=== PATIENT | female | born 1990 | race Caucasian/White ===

== ENCOUNTER 2019-11-26 16:38 | Emergency (ER) | payer OTHER ==
[2019-11-26 16:51] LABS: Glucose,Whole Blood 89 mg/dL (75-99)
[2019-11-26 16:54] VITALS: BP 125/83; PULSE 87; RESP 16; TEMP 97.7
[2019-11-26 17:04] LABS: Basophils % (A) 0 %; Eosinophils # (A) 0.4 k/uL (0-0.7); Eosinophils % (A) 5 %; HCT 41.1 % (34.0-46.0); HGB 14.3 gm/dL (11.4-16.0); Lymphocytes # (A) 2.8 k/uL (1.0-4.8); Lymphocytes % (A) 35 %; MCH 31.7 pg (25.0-35.0); MCHC 34.7 g/dL (31.0-37.0); MCV 91.3 fL (80.0-100.0); Mean Platelet Volume 7.3; Monocytes # (A) 0.3 k/uL (0-1.0); Monocytes % (A) 4 %; Neutrophils # (A) 4.3 k/uL (1.3-7.7); Neutrophils % (A) 53 %; Platelet Count 276 k/uL (150-450); RDW 12.9 % (11.5-15.5); WBC 8.1 k/uL (3.8-10.6)
[2019-11-26 17:14] LABS: ALT 35 U/L (4-34); AST 43 U/L (14-36); African American GFR (CKD) >90 (>60 ml/min/1.73 sqM); Albumin 5.4 g/dL (3.5-5.0); Alkaline Phosphatase 89 U/L (38-126); Anion Gap 12 mmol/L; Blood Urea Nitrogen 9 mg/dL (7-17); Calcium 9.6 mg/dL (8.4-10.2); Carbon Dioxide 21 mmol/L (22-30); Chloride 111 mmol/L (98-107); Glucose 90 mg/dL (74-99); Non-African American GFR(CKD) >90 (>60 ml/min/1.73 sqM); Potassium 4.2 mmol/L (3.5-5.1); Sodium 144 mmol/L (137-145); Total Bilirubin 0.3 mg/dL (0.2-1.3); Total Protein 8.4 g/dL (6.3-8.2)
[2019-11-26 17:16] LABS: Alcohol 288 mg/dL
--- NOTE | 2019-11-26 17:25 | CT ---
EXAMINATION TYPE: CT brain maria d shipman DATE OF EXAM: 11/26/2019 COMPARISON: none HISTORY: Fall with head injury. CT DLP: 1260.[address] Brain: Unenhanced CT of the brain was performed. The ventricles, basal cisterns and sulci overlying the cerebral convexities demonstrate a normal appe arance. There is no evidence for intracranial hemorrhage or sulcal effacement. No mass effects are seen. If symptoms persist consider MRI. Osseous calvarium is intact. Chronic sinusitis. IMPRESSION: No acute intracranial process CT Cervical Spine: Unenhanced CT of the cervical spine was performed with bone and soft tissue window settings submitted . Coronal and sagittal reconstruction is obtained. There is normal alignment and prevertebral soft tissues. I do not see evidence for fracture or sublu xation. No significant degenerative changes are present. The lung apices are clear. IMPRESSION: No evidence for acute fracture or subluxation of the cervical spine.
--- NOTE | 2019-11-26 17:26 | XR ---
EXAMINATION TYPE: XR chest 2V DATE OF EXAM: 11/26/2019 COMPARISON: NONE HISTORY: Chest pain TECHNIQUE: Frontal and lateral views of the chest are obtained. FINDINGS: There is no focal air space opacity. No evidence for pneumothorax. No pleural effusion. The cardiac silhouette size is within normal limits. The osseous structures are grossly intact. IMPRESSION: 1. No acute cardiopulmonary process.
--- NOTE | 2019-11-26 17:35 | ED ---
General Adult HPI - General Source: patient, EMS Mode of arrival: EMS Limitations: altered mental status <Loretta Carter - Last Filed: 11/26/19 18:38> <Ivonne Swift - Last Filed: 11/28/19 00:08> - General Chief complaint: Syncope Stated complaint: Syncope Time Seen by Provider: 11/26/19 16:39 - History of Present Illness Initial comments: 29-year-old female history of ABUSE presents today intoxicated for syncopal episode. Patient is brought in by EMS for evaluation after syncopal episode at [place]. She was sent to the emergency department for evaluation. She states that she had an appointment 11:45 AM. patient states she became irritated with a woman inside and went to stand outside she states it took over 4 hours for her to get into appointment she states she began to feel lightheaded outside she states is very hot out and then passed out she states she does believe she hit her head but denies any head complaints his headache neck pain or scalp abrasions/hematomas. Patient denies neck pain, denies noting any chest pain shortness of breath or any symptoms prior to onset of syncopal episodes denies history of syncopal episodes. When EMS arrived her glucose was 55. Patient denies history of DM. States she did have a sandwhich earlier in the morning. Patient on arrival is AAOX4. she is answering questions appropriately. Patient does not appears in distress. Patient states she will be evaluated but doesnt really want to (Loretta Carter) - Related Data Allergies Allergy/AdvReac Type Severity Reaction Status Date / Time No Known Allergies Allergy Verified 11/26/19 16:52 Review of Systems ROS Other: All systems not noted in ROS Statement are negative. <Loretta Carter - Last Filed: 11/26/19 18:38> ROS Other: All systems not noted in ROS Statement are negative. <Ivonne Swift - Last Filed: 11/28/19 00:08> ROS Statement: Those systems with pertinent positive or pertinent negative responses have been documented in the HPI. Past Medical History Past Medical History: No Reported History History of Any Multi-Drug Resistant Organisms: None Reported Past Surgical History: No Surgical Hx Reported Past Psychological History: No Psychological Hx Reported Smoking Status: Current every day smoker Past Alcohol Use History: Abuse, Daily Past Drug Use History: None Reported <Loretta Carter - Last Filed: 11/26/19 18:38> General Exam Limitations: altered mental status <RaulLoretta Coats - Last Filed: 11/26/19 18:38> - General Exam Comments Initial Comments: General: The patient is awake and alert, in no distress, smells of alcohol Eye: +3 mm pupils are equal, round and reactive to light, extra-ocular movements are intact. No nystagmus. There is normal conjunctiva bilaterally. No signs of icterus. Ears, nose, mouth and throat: There are moist mucous membranes and no oral lesions. No raccoon or Martinez sign no scalp hematomas noted Neck: The neck is supple, there is no tenderness or JVD. No midline tenderness to patient the cervical spine Cardiovascular: There is a regular rate and rhythm. No murmur, rub or gallop is appreciated. Respiratory: Lungs are clear to auscultation, respirations are non-labored, breath sounds are equal. No wheezes, stridor, rales, or rhonchi. Gastrointestinal: Soft, non-distended, non-tender abdomen without masses or organomegaly noted. There is no rebound or guarding present. Musculoskeletal: Normal ROM, no tenderness. Strength 5/5. Sensation intact. Radial pulses equal bilaterally 2+. Neurological: A&O x 3. CN II-XII intact, There are no obvious motor or sensory deficits. Coordination appears grossly intact. Speech is normal. Skin: Skin is warm and dry and no rashes or lesions are noted. Psychiatric: Cooperative, appropriate mood & affect, normal judgment. (Loretta Carter) Course Vital Signs 11/26/19 16:52 Temperature 97.7 F Pulse Rate 87 Respiratory 16 Rate Blood Pressure 125/83 O2 Sat by Pulse 97 Oximetry EKG Findings - EKG Comments: EKG Findings:: Ventricular rate 73 bpm, ID interval 160 ms, QRS duration 96 ms, QT/QTC 394/434. This is no sinus there is no ST elevation or depression there is normal R-wave progression. <Loretta Carter - Last Filed: 11/26/19 18:38> Medical Decision Making - Lab Data Result diagrams: 11/26/19 16:54 11/26/19 16:54 <Loretta Carter - Last Filed: 11/26/19 18:38> - Lab Data Result diagrams: 11/26/19 16:54 11/26/19 16:54 <Ivonne Swift - Last Filed: 11/28/19 00:08> - Medical Decision Making 29-year-old female history of alcohol abuse presenting for syncopal episode. Glucose low on arrival. Patient given food which she arrived to the emergency department, prior to food administration patient glucose 90. Patient appears well no complaints. States she jsut wants to go home, I did leave patient option of leaving-she states she will stay for evaluation. Patient CT brain neck (-). Labs stable. CXR clear. EKG no acute findings. Patient at this time is requesting discharge I feel she stated for discharge as she most likely had syncopal episode secondary to low glucose or vasovagal (outside in heat for exte nded period). Patient is not hyperthermic. Patient discharged appearing well after discussing case wtih Dr. Swift. (Loretta Carter) I was available for consultation in the emergency department. The history and physical exam were done by the midlevel provider. I was consulted for this patients care. I reviewed the case with the midlevel provider and based on their presentation of the patient, I agree with the assessment, medical decision making and plan of care as documented. Chart was dictated using [employer] dictation software. Attempts were made to correct any dictation errors however some typographical errors may persist. Patient was seen during a national state of emergency due to the Covid-19 pandemic. (Ivonne Swift) - Lab Data Lab Results 11/26/19 11/26/19 11/26/19 Range/Units 16:50 16:51 16:54 WBC 8.1 (3.8-10.6) k/uL RBC 4.50 (3.80-5.40) m/uL Hgb 14.3 (11.4-16.0) gm/dL Hct 41.1 (34.0-46.0) % MCV 91.3 (80.0-100.0) fL MCH 31.7 (25.0-35.0) pg MCHC 34.7 (31.0-37.0) g/dL RDW 12.9 (11.5-15.5) % Plt Count 276 (150-450) k/uL Neutrophils % 53 % Lymphocytes % 35 % Monocytes % 4 % Eosinophils % 5 % Basophils % 0 % Neutrophils # 4.3 (1.3-7.7) k/uL Lymphocytes # 2.8 (1.0-4.8) k/uL Monocytes # 0.3 (0-1.0) k/uL Eosinophils # 0.4 (0-0.7) k/uL Basophils # 0.0 (0-0.2) k/uL Sodium (137-145) mmol/L Potassium (3.5-5.1) mmol/L Chloride (98-107) mmol/L Carbon Dioxide (22-30) mmol/L Anion Gap mmol/L BUN (7-17) mg/dL Creatinine (0.52-1.04) mg/dL Est GFR (CKD-EPI)AfAm (>60 ml/min/1.73 sqM) Est GFR (CKD-EPI)NonAf (>60 ml/min/1.73 sqM) Glucose (74-99) mg/dL POC Glucose (mg/dL) 89 (75-99) mg/dL POC Glu Program Development Manager ID Raúl Young Calcium (8.4-10.2) mg/dL Total Bilirubin (0.2-1.3) mg/dL AST (14-36) U/L ALT (4-34) U/L Alkaline Phosphatase (38-126) U/L Troponin I (0.000-0.034) ng/mL Total Protein (6.3-8.2) g/dL Albumin (3.5-5.0) g/dL Urine HCG, Qual Not Detected (Not Detectd) Serum Alcohol mg/dL 11/26/19 11/26/19 Range/Units 16:54 16:54 WBC (3.8-10.6) k/uL RBC (3.80-5.40) m/uL Hgb (11.4-16.0) gm/dL Hct (34.0-46.0) % MCV (80.0-100.0) fL MCH (25.0-35.0) pg MCHC (31.0-37.0) g/dL RDW (11.5-15.5) % Plt Count (150-450) k/uL Neutrophils % % Lymphocytes % % Monocytes % % Eosinophils % % Basophils % % Neutrophils # (1.3-7.7) k/uL Lymphocytes # (1.0-4.8) k/uL Monocytes # (0-1.0) k/uL Eosinophils # (0-0.7) k/uL Basophils # (0-0.2) k/uL Sodium 144 (137-145) mmol/L Potassium 4.2 (3.5-5.1) mmol/L Chloride 111 H (98-107) mmol/L Carbon Dioxide 21 L (22-30) mmol/L Anion Gap 12 mmol/L BUN 9 (7-17) mg/dL Creatinine 0.61 (0.52-1.04) mg/dL Est GFR (CKD-EPI)AfAm >90 (>60 ml/min/1.73 sqM) Est GFR (CKD-EPI)NonAf >90 (>60 ml/min/1.73 sqM) Glucose 90 (74-99) mg/dL POC Glucose (mg/dL) (75-99) mg/dL POC Glu Program Development Manager ID Calcium 9.6 (8.4-10.2) mg/dL Total Bilirubin 0.3 (0.2-1.3) mg/dL AST 43 H (14-36) U/L ALT 35 H (4-34) U/L Alkaline Phosphatase 89 (38-126) U/L Troponin I <0.012 (0.000-0.034) ng/mL Total Protein 8.4 H (6.3-8.2) g/dL Albumin 5.4 H (3.5-5.0) g/dL Urine HCG, Qual (Not Detectd) Serum Alcohol 288 H* mg/dL Disposition Is patient prescribed a controlled substance at d/c from ED?: No Time of Disposition: 17:34 <Loretta Carter - Last Filed: 11/26/19 18:38> <Ivonne Swift - Last Filed: 11/28/19 00:08> Clinical Impression: Syncope, Alcohol intoxication, Low blood glucose measurement Disposition: HOME SELF-CARE Condition: Good Additional Instructions: Please use medication as discussed. Please follow-up with family doctor in the next 2 days. Please return to emergency room if the symptoms increase or worsen or for any other concerns. Referrals: Nonstaff,Physician [Primary Care Provider] - 1-2 days
== END 2019-11-26 18:08 | disposition home or self-care (01) ==
LOC: EC 16:38
DX: F10.129 Alcohol abuse with intoxication, unspecified (principal); E16.2 Hypoglycemia, unspecified; R55 Syncope and collapse; F17.200 Nicotine dependence, unspecified, uncomplicated
CPT/HCPCS: 36415; 93005; 80053; 84484; 85025; 81025; 71046; 72125; 70450; 99285; G0480; 80320